=== PATIENT | female | born 1955 | race Caucasian/White ===

== ENCOUNTER 2023-06-10 08:29 | Outpatient (CLI) | payer MEDICARE, BC | END 2023-06-10 08:30 | disposition home or self-care (01) | LOC: NM 08:29 | PROVIDERS: ATTEND Psychiatry & Neurology Neurology | DX: R29.818 Other symptoms and signs involving the nervous system (principal); Z82.0 Family history of epilepsy and other diseases of the nervous system | CPT/HCPCS: 78803; A9584 ×2 ==